=== PATIENT | female | born 1960 | race Caucasian/White ===

== ENCOUNTER 2019-09-19 10:00 | Day surgery (SDC) | payer BC ==
[~2019-09-19] VITALS: Ht 162.6 cm; Wt 86.5 kg
[~2019-09-19 10:00] MED LIST: CIPR500 PO; CYCL10; CYCL10 PO; DOCU100 PO; FOLI1; Fergon240 M1; HYDACE5 PO; HYDSUL200; Humira20 MG/0.4; LOVA20 PO; LOVA40 PO; METR500 PO; METTREX2.5; NAPR220 PO; NAPR550 PO; OXYACE5T PO; PANT20 PO; RXHYDACE PO; RXNAPNA550 PO; SULF500; Ultram50 MG PO
== END 2019-09-19 11:14 | disposition home or self-care (01) ==
LOC: ORSCSDS 10:00
PROVIDERS: Surgery
PROC: 0DB68ZX Excision of Stomach, Via Natural or Artificial Opening Endoscopic, Diagnostic (ICD-10-PCS; principal; 2019-09-19 11:15)
PROC: 0DB58ZX Excision of Esophagus, Via Natural or Artificial Opening Endoscopic, Diagnostic (ICD-10-PCS; principal; 2019-09-19 11:15)
DX: K22.70 Barrett's esophagus without dysplasia (principal); E66.9 Obesity, unspecified; Z68.34 Body mass index [BMI] 34.0-34.9, adult; K29.70 Gastritis, unspecified, without bleeding; K44.9 Diaphragmatic hernia without obstruction or gangrene; Z87.891 Personal history of nicotine dependence; Z79.899 Other long term (current) drug therapy
CPT/HCPCS: 88305; 88342; J2704; J7120

== ENCOUNTER 2020-09-19 13:20 | Day surgery (SDC) | payer BC ==
[~2020-09-19] VITALS: Ht 162.6 cm; Wt 89.5 kg
[~2020-09-19 13:20] MED LIST changes: +HUMIRA20 MG/0.4 SC; +Hydroxychloroq200 MG PO; +LISI20 PO
== END 2020-09-19 15:17 | disposition home or self-care (01) ==
LOC: ORSCSDS 13:20
PROVIDERS: Surgery
PROC: 0DB58ZX Excision of Esophagus, Via Natural or Artificial Opening Endoscopic, Diagnostic (ICD-10-PCS; principal; 2020-09-19 14:30)
PROC: 0DB68ZX Excision of Stomach, Via Natural or Artificial Opening Endoscopic, Diagnostic (ICD-10-PCS; principal; 2020-09-19 14:30)
DX: K22.70 Barrett's esophagus without dysplasia (principal); K29.70 Gastritis, unspecified, without bleeding; I10 Essential (primary) hypertension; M06.9 Rheumatoid arthritis, unspecified; Z79.899 Other long term (current) drug therapy
CPT/HCPCS: 88305; 88342; J2704; J7120

== ENCOUNTER 2021-03-19 20:14 | Emergency (ER) | payer BC ==
[~2021-03-19] VITALS: Ht 162.6 cm; Wt 86.2 kg
== END 2021-03-19 21:27 | disposition home or self-care (01) ==
LOC: ER 20:14
DX: S01.81XA Laceration without foreign body of other part of head, initial encounter (principal); E78.5 Hyperlipidemia, unspecified; Z88.2 Allergy status to sulfonamides; Z88.8 Allergy status to other drugs, medicaments and biological substances; Z79.899 Other long term (current) drug therapy; Z87.891 Personal history of nicotine dependence; W01.198A Fall on same level from slipping, tripping and stumbling with subsequent striking against other object, initial encounter
CPT/HCPCS: 12002; 99282; A9270

== ENCOUNTER 2021-07-31 06:04 | Day surgery (SDC) | payer BC ==
[~2021-07-31] VITALS: Ht 162.6 cm; Wt 92.0 kg
--- NOTE | 2021-07-31 07:55 | NUR ---
07/31/21 0755 Parvin Sen FLUID DEFICIT OF 143 ML, DR CHAVEZ NOTIFIED, NO NEW ORDERS.
== END 2021-07-31 08:50 | disposition home or self-care (01) ==
LOC: ORSCSDS 06:04
PROVIDERS: Obstetrics & Gynecology
PROC: 0UB98ZX Excision of Uterus, Via Natural or Artificial Opening Endoscopic, Diagnostic (ICD-10-PCS; principal; 2021-07-31 07:30)
PROC: 0UDB8ZX Extraction of Endometrium, Via Natural or Artificial Opening Endoscopic, Diagnostic (ICD-10-PCS; principal; 2021-07-31 07:30)
DX: N95.0 Postmenopausal bleeding (principal); D25.0 Submucous leiomyoma of uterus; I10 Essential (primary) hypertension; K21.9 Gastro-esophageal reflux disease without esophagitis; Z79.899 Other long term (current) drug therapy; E66.9 Obesity, unspecified; Z68.34 Body mass index [BMI] 34.0-34.9, adult
CPT/HCPCS: 88305; A9270; J1100; J1885; J2250; J2405; J2704; J3010

== ENCOUNTER 2022-12-08 06:44 | Day surgery (SDC) | payer OTHER ==
[~2022-12-08] VITALS: Ht 162.6 cm; Wt 92.1 kg
== END 2022-12-08 09:45 | disposition home or self-care (01) ==
LOC: ORSCSDS 06:44
PROVIDERS: Surgery
PROC: 0DB58ZX Excision of Esophagus, Via Natural or Artificial Opening Endoscopic, Diagnostic (ICD-10-PCS; principal; 2022-12-08 08:45)
PROC: 0DJD8ZZ Inspection of Lower Intestinal Tract, Via Natural or Artificial Opening Endoscopic (ICD-10-PCS; principal; 2022-12-08 08:45)
DX: K22.70 Barrett's esophagus without dysplasia (principal); Z80.0 Family history of malignant neoplasm of digestive organs; K57.30 Diverticulosis of large intestine without perforation or abscess without bleeding; E78.1 Pure hyperglyceridemia; M06.9 Rheumatoid arthritis, unspecified; Z87.891 Personal history of nicotine dependence; Z79.899 Other long term (current) drug therapy
CPT/HCPCS: 43239; G0105; J2704; J7120